=== PATIENT | male | born 1930 | race Hispanic/Latino ===

== ENCOUNTER 2016-10-19 19:23 | Observation (INO) | payer BC, MEDICARE ==
[2016-10-19 19:35] VITALS: BMI 21.2
[2016-10-19] MEDS ORDERED: Multivitamin (MVI) 10 ML, Thiamine 100 MG, Folic Acid 1 MG in Sodium Chloride 0.9% 1,00... IV ONE (20:03)
--- NOTE | 2016-10-19 20:06 | ED PDOC ---
Arrival/HPI - General Historian: EMS EM Caveat: Intoxicated <Lonnie Heaton - Last Filed: 10/20/16 01:26> <Philippe Green - Last Filed: 10/20/16 07:00> - General Chief Complaint: Alcohol Ingestion Time Seen by Provider: 10/19/16 19:38 - History of Present Illness Narrative History of Present Illness (Text): 10/19/16 20:04 86 y/o male, pmh including pneumothorax and rib fracture, psychiatric history including alcohol abuse, biba for etoh intoxication. Pt. is currently intoxicated, limited information can be obtained. Pt. stated that he feels well and fine, just want to sleep, no medical or psychological complaints. ( Lonnie Heaton) Past Medical History - Provider Review Nursing Documentation Reviewed: Yes - Past History Past History: Unable to Obtain - Infectious Disease Hx of Infectious Diseases: None - Tetanus Immunization Tetanus Immunization: Unknown - Cardiac Hx Cardiac Disorders: Yes Hx Hypertension: Yes - Pulmonary Hx Respiratory Disorders: Yes Hx Chronic Obstructive Pulmonary Disease (COPD): Yes - Neurological Hx Neurological Disorder: No - HEENT Hx HEENT Disorder: No - Renal Hx Renal Disorder: No - Endocrine/Metabolic Hx Endocrine Disorders: No - Hematological/Oncological Hx Blood Disorders: No - Integumentary Hx Dermatological Disorder: No - Musculoskeletal/Rheumatological Hx Musculoskeletal Disorders: Yes Hx Falls: Yes - Gastrointestinal Hx Gastrointestinal Disorders: No - Genitourinary/Gynecological Hx Genitourinary Disorders: No - Psychiatric Hx Psychophysiologic Disorder: No Hx Emotional Abuse: No Hx Physical Abuse: No Hx Sexual Abuse: No Hx Substance Use: No - Past Surgical History Past Surgical History: Non-Contributing - Anesthesia Hx Anesthesia Reactions: No - Suicidal Assessment Feels Threatened In Home Enviroment: No <Lonnie Heaton - Last Filed: 10/20/16 01:26> Family/Social History - Physician Review Nursing Documentation Reviewed: Yes Family/Social History: Unknown Family HX Smoking Status: Smoker Currrent Status Unknown Hx Alcohol Use: Yes (1-2 SHOTS DAILY) Hx Substance Use: No Hx Substance Use Treatment: No <Lonnie Heaton - Last Filed: 10/20/16 01:26> Allergies/Home Meds <Lonnie Heaton - Last Filed: 10/20/16 01:26> <Philippe Green - Last Filed: 10/20/16 07:00> Allergies/Adverse Reactions: Allergies No Known Allergies Allergy (Verified 10/19/16 19:35) Review of Systems - Review of Systems Systems not reviewed;Unavailable: Intoxicated <Lonnie Heaton - Last Filed: 10/20/16 01:26> Physical Exam - Physical Exam Physical Exam Limitations: Intoxication Finger Stick Blood Glucose: 105 - Systems Exam Head: Present: Atraumatic, Normocephalic Pupils: Present: PERRL Extroacular Muscles: Present: EOMI Conjunctiva: Present: Normal Ears: Present: NORMAL TM, Normal Canal. No: Erythema Mouth: Present: Moist Mucous Membranes, Normal Lips, Normal Tounge. No: Drooling, Trismus Pharnyx: No: ERYTHEMA, EXUDATE, TONSILS ENLARGED, Uvular Deviation Nose (External): Present: Atraumatic. No: Abrasion, Contusion Nose (Internal): Present: Normal Inspection, No Active Bleeding. No: Rhinorrhea , Septal Hematoma, Epistaxis Neck: Present: Normal Range of Motion, Trachea Midline. No: MIDLINE TENDERNESS , Paraspinal Tenderness Respiratory/Chest: Present: Clear to Auscultation, Good Air Exchange. No: Respiratory Distress, Accessory Muscle Use, Decreased Breath Sounds, Rales, Retracting, Rhonchi, Tachypneic, Tender to Palpation Cardiovascular: Present: Regular Rate and Rhythm, Normal S1, S2. No: Murmurs Abdomen: Present: Normal Bowel Sounds. No: Tenderness, Distention, Peritoneal Signs, Rebound, Guarding Back: Present: Normal Inspection. No: CVA Tenderness, Midline Tenderness, Paraspinal Tenderness Upper Extremity: Present: Normal Inspection, Normal ROM, Capillary Refill < 2s. No: Cyanosis, Edema, Deformity Lower Extremity: Present: Normal Inspection, Normal ROM, Capillary Refill < 2 s. No: Edema, Deformity Neurological: Present: GCS=15, Motor Func Grossly Intact Skin: Present: Warm, Dry, Normal Color. No: Rashes Psychiatric: Present: Alert, Oriented x 3, Normal Insight, Normal Concentration <Lonnie Heaton - Last Filed: 10/20/16 01:26> Medical Decision Making <Lonnie Heaton - Last Filed: 10/20/16 01:26> <Philippe Green - Last Filed: 10/20/16 07:00> ED Course and Treatment: 10/19/16 20:06 -FS 105 -labs/magnesium and CK level -CT head -IV banana bag -observe and reassess (Lonnie Heaton) - Lab Interpretations Lab Results: 10/19/16 21:00 10/19/16 21:00 Lab Results 10/19/16 21:00: Alcohol, Quantitative 341 H* 10/19/16 21:00: Sodium 138, Potassium 4.9, Chloride 99, Carbon Dioxide 23, Anion Gap 21 H, BUN 21, Creatinine 1.0, Est GFR ( Amer) > 60, Est GFR ( Non-Af Amer) > 60, Random Glucose 93, Calcium 9.0, Magnesium 2.1, Total Bilirubin 0.9, AST 45, ALT 32, Alkaline Phosphatase 41, Total Creatine Kinase 70 , Total Protein 7.8, Albumin 4.2, Globulin 3.5, Albumin/Globulin Ratio 1.2 10/19/16 21:00: WBC 9.6, RBC 4.31, Hgb 14.2, Hct 41.1 L, MCV 95.4, MCH 32.9, MCHC 34.5, RDW 13.9, Plt Count 209, MPV 11.0, Gran % 31.0 L, Lymph % (Auto) 57.8 H, Banks % (Auto) 8.1 H, Eos % (Auto) 2.4, Baso % (Auto) 0.7, Gran # 2.96, Lymph # 5.5 H, Banks # 0.8 H, Eos # 0.2, Baso # 0.07 - RAD Interpretation Radiology Orders: 10/19/16 20:02 HEAD W/O CONTRAST [CT] Stat - Medication Orders Current Medication Orders: Discontinued Medications Multivitamins/Vitamin C 10 ml/Thiamine HCl 100 mg/ Folic Acid 1 mg/ Sodium Chloride 1,011.2 mls @ 250 mls/hr IV .Q4H3M ONE Stop: 10/20/16 00:05 Last Admin: 10/19/16 21:09 Dose: 250 mls/hr ED OBSERVATION Date of observation admission: 10/19/16 Time of observation admission: 21:21 <Lonnie Heaton - Last Filed: 10/20/16 01:26> Discharge: Yes <Philippe Green - Last Filed: 10/20/16 07:00> - Observation admission statement Patient is being placed in observation because:: etoh intoxicated (Lonnie Heaton) - Goals of Observation Goals of observation are:: sober (Lonnie Heaton) - Progress Note Progress Note: 10/19/16 23:22 Pt. is sleeping, no medical or psychological complaints. 10/20/16 00:21 -Labs are non-significant -CT head show no acute findings -ETOH 341 10/20/16 02:00 -Case discussed and sign out to the ER attending Dr. Green, he will follow up and dispo the patient. (Lonnie Heaton) 10/20/16 04:00 Pt is sleeping, no medical or psychological complaints. 10/20/16 06:00 Pt. is sleeping, no medical or psychological complaints. 10/20/16 07:00 Pt. awake alert,sober.Daughter to accompany pt. home. (Philippe Green) - PA / VEHICLE MONITOR TECHNICIAN / Resident Statement / has reviewed & agrees with the documentation as recorded. / has examined the patient and agrees with the treatment plan. <Philippe Green - Last Filed: 10/20/16 07:00> Disposition/Present on Arrival - Present on Arrival History of DVT/PE: No History of Uncontrolled Diabetes: No Urinary Catheter: No History of Decub. Ulcer: No History Surgical Site Infection Following: None <Lonnie Heaton - Last Filed: 10/20/16 01:26> - Present on Arrival Any Indicators Present on Arrival: No - Disposition Have Diagnosis and Disposition been Completed?: Yes Disposition Time: 07:00 Patient Plan: Discharge <Philippe Green - Last Filed: 10/20/16 07:00> - Disposition Diagnosis: Alcohol intoxication Disposition: HOME/ ROUTINE Patient Problems: Current Active Problems Problem Status Onset Alcohol intoxication Acute Condition: GOOD
[2016-10-19 21:09] LABS: ADD MANUAL DIFF? NO
[2016-10-19 21:14] LABS: BASO # 0.07 K/mm3 (0.0-2.0); BASO % 0.7 % (0.0-3.0); EOS # 0.2 (0.0-0.7); EOS % 2.4 % (1.5-5.0); GRAN # 2.96 (1.4-6.5); HEMATOCRIT 41.1 % (42.0-52.0); LYMPH # 5.5 (1.2-3.4); LYMPH % 57.8 % (22.0-35.0); MEAN CELL VOLUME 95.4 fL (80.0-105.0); MEAN CORPUSCULAR HEMOGLOBIN 32.9 pg (25.0-35.0); MEAN CORPUSCULAR HGB CONC 34.5 g/dl (31.0-37.0); MONO # 0.8 (0.1-0.6); MONO % 8.1 % (1.0-6.0); PLATELET COUNT 209 10^3/uL (120.0-450.0); RED CELL DISTRIBUTION WIDTH 13.9 % (11.5-14.5); WHITE BLOOD COUNT 9.6 10^3/ul (4.5-11.0)
[2016-10-19 21:24] LABS: ALB/GLOB RATIO 1.2 (1.1-1.8); ALKALINE PHOSPHATASE 41 U/L (38-133); ALT/SGPT 32 U/L (7-56); AST/SGOT 45 U/L (15-59); BILIRUBIN,TOTAL 0.9 mg/dL (0.2-1.3); BLOOD UREA NITROGEN 21 mg/dL (7-21); CARBON DIOXIDE 23 mmol/L (21-33); CHLORIDE 99 mmol/L (98-107); GFR AFRICAN-AMERICAN > 60; GLUCOSE,RANDOM 93 mg/dL (70-110); MAGNESIUM 2.1 mg/dL (1.7-2.2); POTASSIUM 4.9 mmol/L (3.6-5.0); SODIUM 138 mmol/L (132-148); TOTAL PROTEIN 7.8 g/dL (5.8-8.3)
--- NOTE | 2016-10-19 23:19 | CT ---
EXAM: CT Head Without Intravenous Contrast CLINICAL HISTORY: 86 years old, male; Injury or trauma; Fall; Initial encounter; Blunt trauma (contusions or hematomas); Additional info: ETOH intoxicated, possible fall? TECHNIQUE: Axial computed tomography images of the head/brain without intravenous contrast. This CT exam was performed using one or more of the following dose reduction techniques: automated exposure control, adjustment of the mA and/or kV according to patient size, and/or use of iterative reconstruction technique. COMPARISON: CT - HEAD W/O CONTRAST 04/13/2016 11:05:55 AM FINDINGS: Brain: No acute intracranial hemorrhage. Age-appropriate periventricular white matter disease. No edema. Ventricles: Age-appropriate ventriculomegaly. Bones: No acute displaced fracture. Sinuses: Unremarkable as visualized. No acute sinusitis. Mastoid air cells: Unremarkable as visualized. No mastoid effusion. IMPRESSION: No acute intracranial hemorrhage, or suspicious mass effect.
[2016-10-20 04:41] VITALS: BP 120/60; PULSE 59; RESP 16; O2SAT 99
== END 2016-10-20 06:59 | disposition home or self-care (01) ==
LOC: ED 19:23 → EROBSV 23:19
PROVIDERS: ADMIT Emergency Medicine; ATTEND Emergency Medicine
DX: F10.129 Alcohol abuse with intoxication, unspecified (principal); Y90.8 Blood alcohol level of 240 mg/100 ml or more
CPT/HCPCS: 70450; 80053; 82550; 83735; 85025; 96360; 96361; 99284; G0378; G0480; J3411; J7040

== ENCOUNTER 2016-12-13 22:44 | Observation (INO) | payer MEDICARE ==
[2016-12-13 22:44] VITALS: BMI 21.2
[2016-12-13 23:10] VITALS: TEMP 98.6
--- NOTE | 2016-12-13 23:51 | ED PDOC ---
Arrival/HPI - General Historian: Patient - History of Present Illness Time/Duration: Other (tonight) Symptom Onset: Gradual Symptom Course: Unchanged Activities at Onset: Rest, Light Context: Home <Philippe Green - Last Filed: 12/14/16 05:02> <Pacheco Leary - Last Filed: 12/14/16 08:12> - General Chief Complaint: Alcohol Ingestion Time Seen by Provider: 12/13/16 23:25 - History of Present Illness Narrative History of Present Illness (Text): 12/13/16 23:49 Eugene Beckwith is an 86 year old male, whose past medical history includes alcohol abuse, who presents to the emergency department brought in by EMS for alcohol intoxication tonight. Patient states he feels fine and just wants to sleep. Patient denies any fever, chills, chest pain, shortness of breath, abdominal pain, nausea, vomiting, diarrhea, back pain, neck pain, headache, dizziness, or any other complaints. (Philippe Green) Past Medical History - Provider Review Nursing Documentation Reviewed: Yes - Past History Past History: Unable to Obtain - Infectious Disease Hx of Infectious Diseases: None - Tetanus Immunization Tetanus Immunization: Unknown - Cardiac Hx Cardiac Disorders: Yes Hx Hypertension: Yes - Pulmonary Hx Respiratory Disorders: Yes Hx Chronic Obstructive Pulmonary Disease (COPD): Yes - Neurological Hx Neurological Disorder: No - HEENT Hx HEENT Disorder: No - Renal Hx Renal Disorder: No - Endocrine/Metabolic Hx Endocrine Disorders: No - Hematological/Oncological Hx Blood Disorders: No - Integumentary Hx Dermatological Disorder: No - Musculoskeletal/Rheumatological Hx Musculoskeletal Disorders: Yes Hx Falls: Yes - Gastrointestinal Hx Gastrointestinal Disorders: No - Genitourinary/Gynecological Hx Genitourinary Disorders: No - Psychiatric Hx Psychophysiologic Disorder: No Hx Emotional Abuse: No Hx Physical Abuse: No Hx Sexual Abuse: No Hx Substance Use: No - Past Surgical History Past Surgical History: Non-Contributing - Anesthesia Hx Anesthesia Reactions: No - Suicidal Assessment Feels Threatened In Home Enviroment: No <Philippe Green - Last Filed: 12/14/16 05:02> Family/Social History - Physician Review Nursing Documentation Reviewed: Yes Family/Social History: Unknown Family HX Smoking Status: Smoker Currrent Status Unknown Hx Alcohol Use: Yes (1-2 SHOTS DAILY) Hx Substance Use: No Hx Substance Use Treatment: No <Philippe Green - Last Filed: 12/14/16 05:02> Allergies/Home Meds <Philippe Green - Last Filed: 12/14/16 05:02> <SapphirePacheco - Last Filed: 12/14/16 08:12> Allergies/Adverse Reactions: Allergies No Known Allergies Allergy (Verified 10/19/16 19:35) Review of Systems - Physician Review All systems were reviewed & negative as marked: Yes - Review of Systems Constitutional: Normal. absent: Fevers Eyes: Normal ENT: Normal Respiratory: Normal. absent: SOB, Cough Cardiovascular: Normal. absent: Chest Pain Gastrointestinal: Normal. absent: Abdominal Pain, Diarrhea, Nausea, Vomiting Genitourinary Male: Normal. absent: Dysuria, Frequency, Hematuria, Urinary Output Changes Musculoskeletal: Normal. absent: Back Pain, Neck Pain Skin: Normal. absent: Rash Neurological: Normal. absent: Headache, Dizziness Endocrine: Normal Hemo/Lymphatic: Normal Psychiatric: Other (+alcohol abuse) <Philippe Green - Last Filed: 12/14/16 05:02> Physical Exam Vital Signs Reviewed: Yes Temperature: Afebrile Blood Pressure: Normal Pulse: Regular Respiratory Rate: Normal Appearance: Positive for: Well-Appearing, Comfortable Pain Distress: None Mental Status: Positive for: Alert and Oriented X 3 Finger Stick Blood Glucose: 92 - Systems Exam Head: Present: Atraumatic, Normocephalic Pupils: Present: PERRL Extroacular Muscles: Present: EOMI Conjunctiva: Present: Normal Mouth: Present: Moist Mucous Membranes Neck: Present: Normal Range of Motion Respiratory/Chest: Present: Clear to Auscultation, Good Air Exchange. No: Respiratory Distress, Accessory Muscle Use Cardiovascular: Present: Regular Rate and Rhythm, Normal S1, S2. No: Murmurs Abdomen: Present: Normal Bowel Sounds. No: Tenderness, Distention, Peritoneal Signs Back: Present: Normal Inspection Upper Extremity: Present: Normal Inspection. No: Cyanosis, Edema Lower Extremity: Present: Normal Inspection. No: Edema Neurological: Present: GCS=15, CN II-XII Intact, Speech Normal Skin: Present: Warm, Dry, Normal Color. No: Rashes Psychiatric: Present: Alert <Philippe Green - Last Filed: 12/14/16 05:02> Medical Decision Making - Lab Interpretations I have reviewed the lab results: Yes <Philippe Green - Last Filed: 12/14/16 05:02> <Pacheco Leary - Last Filed: 12/14/16 08:12> ED Course and Treatment: 12/13/16 23:49 Impression: 86 year old male brought in for alcohol intoxication. Differential Diagnosis included but are not limited to: alcohol intoxication. Plan: - Reassess and disposition (Philippe Green) - Medication Orders Current Medication Orders: Discontinued Medications Sodium Chloride (Sodium Chloride 0.9%) 500 mls @ 500 mls/hr IV .Q1H STA Stop: 12/14/16 05:27 Last Admin: 12/14/16 04:34 Dose: 500 mls/hr ED OBSERVATION Date of observation admission: 12/13/16 Time of observation admission: 23:50 <Philippe Green - Last Filed: 12/14/16 05:02> Discharge: Yes <Pacheco Leary - Last Filed: 12/14/16 08:12> - Observation admission statement Patient is being placed in observation because:: alcohol intoxication (Philippe Green) - Goals of Observation Goals of observation are:: sobriety (Philippe Green) - Progress Note Progress Note: 12/13/16 23:50 Pt brought in for alcohol intoxication, will observe pending sobriety. 12/14/16 01:50 Pt sleeping currently, in no acute distress. 12/14/16 03:50 Pt sleeping well, resting comfortably. 12/14/16 05:30 Pt sleeping well, resting comfortably. 12/14/16 07:[address] Leary, pending sobriety, re-evaluation, and final disposition. (Philippe Green) 12/14/16 07:00 Case endorsed to me by Dr. Green, pending sobriety, reevaluation and disposition. Resting comfortably with stable vitals. 12/14/16 08:01 Patient's daughter at the emergency department requesting discharge of patient, states she can take him home. Patient is stable for discharge. (Pacheco Leary) - Scribe Statement The provider has reviewed the documentation as recorded by the Scribe <Philippe Green - Last Filed: 12/14/16 05:02> <Pacheco Leary - Last Filed: 12/14/16 08:12> - Scribe Statement Caryn West Provider Scribe Attestation: All medical record entries made by the Scribe were at my direction and personally dictated by me. I have reviewed the chart and agree that the record accurately reflects my personal performance of the history, physical exam, medical decision making, and the department course for this patient. I have also personally directed, reviewed, and agree with the discharge instructions and disposition. (Philippe Green) Disposition/Present on Arrival - Present on Arrival History of DVT/PE: No History of Uncontrolled Diabetes: No Urinary Catheter: No History of Decub. Ulcer: No History Surgical Site Infection Following: None <Philippe Green - Last Filed: 12/14/16 05:02> - Present on Arrival Any Indicators Present on Arrival: No - Disposition Have Diagnosis and Disposition been Completed?: Yes Disposition Time: 08:12 Patient Plan: Discharge <Pacheco Leary - Last Filed: 12/14/16 08:12> - Disposition Diagnosis: Alcohol intoxication Disposition: HOME/ ROUTINE Patient Problems: Current Active Problems Problem Status Onset Alcohol intoxication Acute Condition: STABLE
[2016-12-14 00:23] LABS: ALB/GLOB RATIO 1.3 (1.1-1.8); ALKALINE PHOSPHATASE 51 U/L (38-133); ALT/SGPT 24 U/L (7-56); AST/SGOT 36 U/L (15-59); BILIRUBIN,TOTAL 0.2 mg/dL (0.2-1.3); BLOOD UREA NITROGEN 18 mg/dL (7-21); CALCIUM 9.1 mg/dL (8.4-10.5); CARBON DIOXIDE 24 mmol/L (21-33); CHLORIDE 105 mmol/L (95-110); GFR AFRICAN-AMERICAN > 60; GLUCOSE,RANDOM 117 mg/dL (70-110); POTASSIUM 4.5 mmol/L (3.6-5.0); SODIUM 141 mmol/L (132-148); TOTAL PROTEIN 6.8 g/dL (5.8-8.3)
[2016-12-14 00:27] LABS: HEMATOCRIT 41.2 % (42.0-52.0); MEAN CELL VOLUME 96.7 fL (80.0-105.0); MEAN CORPUSCULAR HEMOGLOBIN 33.1 pg (25.0-35.0); MEAN CORPUSCULAR HGB CONC 34.2 g/dl (31.0-37.0); MEAN PLATELET VOLUME 10.5 fl (7.0-11.0); RED CELL DISTRIBUTION WIDTH 13.8 % (11.5-14.5); WHITE BLOOD COUNT 11.7 10^3/ul (4.5-11.0)
[2016-12-14] MEDS ORDERED: Sodium Chloride 0.9% 500 ML IV STA (04:28)
[2016-12-14 05:17] VITALS: O2SAT 98
[2016-12-14 07:25] VITALS: BP 121/65; PULSE 51; RESP 18
== END 2016-12-14 08:12 | disposition home or self-care (01) ==
LOC: ED 22:44 → ERH 23:50 → EROBSV 12-14 01:42
PROVIDERS: ADMIT Emergency Medicine; ATTEND Emergency Medicine
DX: F10.129 Alcohol abuse with intoxication, unspecified (principal); Y90.8 Blood alcohol level of 240 mg/100 ml or more
CPT/HCPCS: 80053; 85027; 96360; 99283; G0378; G0480; J7040